=== PATIENT | male | born 1975 | race Caucasian/White ===

== ENCOUNTER 2023-01-24 09:40 | Emergency (ER) | payer OTHER, SELFPAY ==
--- NOTE | ~2023-01-24 | XR_ITS ---
EXAMINATION: XR WRIST, LEFT XR HAND, LEFT CLINICAL INFORMATION: Injury. Pain and swelling. COMPARISON: None available. TECHNIQUE: 4 views of the left hand and wrist FINDINGS: Bone alignment is normal. No acute fracture or dislocation. There is a bony protuberance off the radial side of the first metacarpal head and subcortical cystic or degenerative change. There is adjacent soft tissue swelling. Carpal bones are normal. XR/XR hand wrist LT IMPRESSION: Bony protuberance off the radial side of the first metacarpal head, subcortical cystic or degenerative degenerative changes and adjacent soft tissue swelling.
[2023-01-24 10:30] VITALS: BP 128/76; PULSE 86; RESP 19; TEMP 35.9; O2SAT 95; BMI 29.0
[2023-01-24 11:51] VITALS: BP 136/79; PULSE 84; RESP 16; TEMP 36.4; O2SAT 94
--- NOTE | 2023-01-24 11:52 | PC.NURSE ---
patient a&ox3, c/o rt wrist/hand pain 8/10 with movement and 3-4/10 when not moving, xr previously performed while pt was in wr, pt awaiting provider, call mclean within reach, will continue to monitor.
--- NOTE | 2023-01-24 13:11 | ED_ITS ---
HPI - General Adult General Chief complaint: Extremity Problem Stated complaint: ? L hand fracture Time Seen by Provider: 01/24/23 12:06 Source: patient Mode of arrival: ambulatory Limitations: no limitations History of Present Illness HPI narrative: Patient is a 47-year-old male presenting to the emergency department with worsening left thumb pain. Patient states he injured left hand around 25 years prior and had surgery, has had baseline deformity since that time. Reports he typically does not have pain to his left thumb. States over the past 6 months since he has had increasing pain to his left thumb radiating to his wrist as well as stiffness in the joints of his left thumb. States he has an appointment with [facility] within the next month. Denies any numbness or tingling to his thumb denies any color change. States this morning the pain was so severe he felt he needed to be evaluated in the emergency department to rule out fracture. He denies any recent injury or trauma. MD complaint: Left thumb pain Onset (ago): month(s) Location: upper extremity Radiation: proximal Severity: severe Quality: aching Pain Consistency: constant Relieving factors: rest Exacerbating factors: movement Associated symptoms: denies other symptoms Treatments prior to arrival: none Related Data Previous Rx's Medication Instructions Recorded prednisone 20 mg tablet 40 mg PO DAILY #10 tabs 01/24/23 Allergies Allergy/AdvReac Type Severity Reaction Status Date / Time tree and shrub pollen Allergy Unknown Verified 01/24/23 11:51 Review of Systems Review of Systems: As per HPI. Yes all other systems are reviewed and are negative Constitutional: Constitutional: Reports as per HPI FORMERLY [facility], [facility] Social History Social History Advance Directives: No Physical Exam ED Vital Signs: Vital Signs - 24 hr 01/24/23 10:30 01/24/23 11:51 Temperature 96.7 F L 97.5 F Pulse Rate 86 84 Respiratory Rate 19 16 Blood Pressure 128/76 136/79 Pulse Oximetry 95 94 Oxygen Delivery Method Room Air Room Air BMI result Body Mass Index 29.0 Vital signs have been reviewed and appear to be correct. Blood pressure normal. Heart rate normal. Respiratory rate normal. Temperature normal. Oxygen saturation normal. Const General: cooperative, healthy appearing and no acute distress Orientation/consciousness: oriented to person, oriented to place, oriented to time and patient oriented x3 Limitations: no limitations HENMT Head: Yes normocephalic and Yes atraumatic Ears: external ears normal General nose exam: Normal external nose present Face and sinus: Yes face symmetric Mouth: oropharynx normal and moist mucous membranes Throat: Yes uvula midline Eyes Pupils: Equal, round and reactive pupils present Neck Neck: Yes normal visual inspection and Yes supple Resp Effort & Inspection: normal respiratory effort and able to speak in complete sentences Auscultation: clear to auscultation bilaterally Cardio Rate: regular rate Rhythm: regular rhythm Heart sounds: S1 normal heart sound present and S2 normal heart sound present GI Palpation (GI): Soft to palpation and nontender Auscultation: normoactive bowel sounds General: Yes no CVA tenderness Back/Spine/Pelvis Back: no CVA tenderness Skin General skin exam: elasticity normal and turgor normal Neuro General: oriented to person, oriented to place, oriented to time, patient oriented x3, moves all extremities, no focal motor deficits and CN's II-XI intact bilaterally Cranial nerves: Yes Equal, round and reactive pupils present Cognition (Neuro): normal cognition Extrem General: Yes full ROM, Yes no pedal edema and Yes no calf tenderness Left upper extremity: hand Details: abnormal to inspection Details: a deformity Location: of the thumb, normal capillary refill, neuromotor exam normal, neur osensory exam normal, tendon exam normal, tenderness Location: of the thumb Location: at the MCP joint and normal ROM of fingers Psych Mental Status: mental status grossly normal Affect: normal affect Thought process: Normal thought process present Medical Decision Making Medical Decision Making MDM Narrative: Patient is a 47-year-old male presenting to the emergency department with worsening left thumb pain. On exam patient is awake, A+Ox3, VS WNL, afebrile, normal neurological exam without focal deficits, left thumb deformity which patient states is baseline for past 25 years, tenderness over 1st MCP joint, no erythema or swelling, no ecchymosis, full passive ROM, limited ROM with flexion and extension,normal cap refill. Given reported symptoms and physical exam findings, initial differential includes sprain, fracture, arthritis. Unlikely gout as no erythema or warmth. X-ray notable for bony protuberance on radial side of first metacarpal with degenerative changes and associated soft tissue swelling. My interpretation is in agreement with the radiologist's interpretation. Will discharge patient home on short course prednisone to decrease inflammation. Advised patient he can utilize Tylenol on the prednisone, then can add ibuprofen once prednisone has been completed. Should also ice the area for 10-15 minutes at a time several times daily and perform gentle [id number] exercises several times daily. Instructed patient to keep follow-up appointment with Orthopedics. Return precautions discussed at bedside. Instructed patient to also follow up with primary care provider. All results discussed and all questions answered. Patient verbalized understanding of an agreement with plan. Differential Diagnosis Differential Diagnoses: The differential diagnosis associated with the presentation includes As per MDM. Independent Interpretation I performed an independent interpretation of an: Plain X-Ray Interpretation: Bony protuberance of radial side of 1st metacarpal with degenerative changes and adjacent soft tissue swelling, no acute fracture Radiology Impression Discussion of test interpretation with radiology: I have reviewed the rad iologist's reading. Radiologist Impression: XR/XR hand wrist LT IMPRESSION: Bony protuberance off the radial side of the first metacarpal head, subcortical cystic or degenerative degenerative changes and adjacent soft tissue swelling. 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 Your evaluation did not find evidence of medical conditions requiring emergent intervention at this time. Please rest, ice, and elevate your hand while at rest, and resume normal activities as tolerated. You are being prescribed a sh ort course of prednisone, you may take Tylenol while you are on the prednisone but you should not take ibuprofen or other NSAIDs. You can resume the use of NSAIDs after you have completed the course of prednisone. We recommend after the prednisone you take 600mg ibuprofen every 6 hours or 650mg Tylenol every 6 hours as needed for pain. If needed you can alternate these medications as they take 1 medication every 3 hours. For instance at noon take ibuprofen, then at 3:00 p.m. take Tylenol, then at 6:00 p.m. take ibuprofen. Please schedule an appointment for follow-up with your primary care provider this week. Keep your orthopedic appointment through [facility]. Return to the emergency department if you experience worsening pain, numbness, tingling, change of color in your hand, or any other concerning symptoms. Prescriptions: New prednisone 20 mg tablet 40 mg PO DAILY Qty: 10 0RF
== END 2023-01-24 14:15 | disposition home or self-care (01) ==
PROVIDERS: Emergency Provider Emergency Medicine; PCP Family Medicine
DX: M19.042 Primary osteoarthritis, left hand (principal); M79.645 Pain in left finger(s)
CPT/HCPCS: 73110; 73130; 99283; 99284

== ENCOUNTER 2024-03-19 00:16 | Emergency (ER) | payer OTHER, SELFPAY ==
[2024-03-19 00:44] VITALS: BP 126/83; PULSE 98; RESP 18; TEMP 36.6; O2SAT 96; BMI 28.6
--- NOTE | 2024-03-19 01:44 | PC.NURSE ---
pt from home, a&ox4, respirations even and unlabored. pt reporting at around 11pm his older cat started fighting the younger cat so he attempted to break them up when his cat bit and scratched him. pt noted to have multiple tooth punctures and scratches on bilateral hands and arms. pt is unsure when his cat went to the vet last but has been previously got a rabies vaccine and reports the cat is a home cat. pt denies pain. swelling noted to left thumb.
[2024-03-19 03:43] VITALS: BP 143/92; PULSE 86; RESP 18; TEMP 36.4; O2SAT 97
--- NOTE | 2024-03-19 04:02 | MHC.EDTECH ---
Hourly rounds and vitals completed,patient was given a cup of coffee,and a cup of ice water,call mclean in reach
--- NOTE | 2024-03-19 04:11 | PC.NURSE ---
charge out clerk Karen at bedside speaking with pt about plan of care, aware of pt 02/13 pain.
--- NOTE | 2024-03-19 04:26 | ED.ANIMALBIT ---
HPI - Animal Bite General Chief Complaint: Animal Bite Stated Complaint: animal bite Time Seen by Provider: 03/19/24 04:12 Source: patient Mode of arrival: ambulatory Limitations: no limitations History of Present Illness ED Provider: Dr. Deanna Ramirez HPI narrative: Patient comes to the emergency room complaining of cat bites and scratches to both hands. Patient states that the cat who attack them is his own cat. Patient states he has 3 cats at home, the CT scan into a fight. Patient got bitten by 1 of his cats. Patient states that the cats have been immunized for rabies but they do not know if they are up to date. However, the 3 cats are indoor only cats and they have no exposure to other animals. Patient states that he does not remember when his last Tdap injection/booster was Related Data Previous Rx's ?Medication ?Instructions ?Recorded prednisone 20 mg tablet 40 mg (2 x 20 mg) PO DAILY #10 tabs 01/24/23 acetaminophen 500 mg tablet 500 mg PO QID PRN fever or pain 03/19/24 #20 tabs amoxicillin 500 mg-potassium 1 tab PO BID #14 tabs 03/19/24 clavulanate 125 mg tablet (Augmentin) ketorolac 10 mg tablet 10 mg PO .B.i.d. PRN pain #10 tabs 03/19/24 Allergies Allergy/AdvReac Type Severity Reaction Status Date / Time tree and shrub pollen Allergy Unknown Verified 03/19/24 00:44 Review of Systems Review of Systems: Constitutional : No Weight loss, No Fever, No Chills, No Night Sweats, No Fatigue, No Malaise ENT/Mouth : No Hearing loss, No Ear Pain, No Nasal Congestion, No Sinus Pain, No Hoarseness, No sore throat, No Rhinorrhea, No Swallowing Difficulty Eyes: No Eye Pain, No Swelling, No Redness, No Foreign Body, No Discharge, No Vision Changes Cardiovascular : No Chest Pain, No SOB, No Dyspnea on Exertion, No Orthopnea, No Edema, No Palpitations Respiratory : No Cough, No Sputum, No Wheezing, No Smoke Exposure, No Dyspnea Gastrointestinal : No Nausea, No Vomiting, No Diarrhea, No Constipation, No abdominal Pain, No Hematochezia, No Melena Genitourinary : no irregular bleeding, No Dysuria, No Urinary Frequency, No Hematuria, No Urinary Incontinence, No Urgency, No Flank Pain, No Urinary Flow Changes, No Hesitancy Musculoskeletal : No joint pain, No Myalgias, No Joint Swelling Skin : Multiple scratches and cat bites to both hands Neuro : No Weakness, No Numbness, No Paresthesias, No Loss of Consciousness, No Dizziness, No Headache Psych : No Anxiety/Panic, No Depression, No SI/HI/AH/VH, No Social Issues, Heme/Lymph: No Bruising, No Bleeding,No Lymphadenopathy Endocrine : No Polyuria, No Polydipsia, No Temperature Intolerance PMFSH Social History Social History Smoked in Last 30 Days: No Use of substances other than those prescribed or required for medical reasons: No Advance Directives: No Advance Directives Information Provided: No Do you have a plan to hurt others: No Plan Physical Exam ED Vital Signs: Vital Signs - 24 hr 03/19/24 00:44 03/19/24 03:43 Temperature 97.8 F 97.6 F Pulse Rate 98 86 Respiratory Rate 18 18 Blood Pressure 126/83 143/92 H Pulse Oximetry 96 97 Oxygen Delivery Method Room Air Room Air BMI result Body Mass Index 28.6 Const Other: Appearance: Alert. Oriented X3. No acute distress. Eyes: Pupils equal, round and reactive to light. ENT: Pharynx normal. Neck: Normal inspection. Neck supple. No lymph nodes noted. No crepitus CVS: Normal heart rate and rhythm. Pulses normal. Normal S1 and S2 Respiratory: No respiratory distress. Breath sounds normal. No Wheezing. No rales Abdomen: Soft and nontender. No rigidity. No distention. Skin: Skin warm and dry. Normal skin color. Normal skin turgor. Extremities: No lower extremity edema. No Lacerations. No Rash. Patient is able to flex and extend all fingers. Flexing the index finger of the left hand hurts but still able to do so. A bit swollen, no erythema, no pus drainage Neuro: Oriented X 3. No motor deficit. No sensory deficit. Moving all extremities. No slurred speech. CN 2 through 12 grossly intact Psych: calm, cooperative, normal affect Medical Decision Making Medical Decision Making MDM Narrative: Patient's hands were soaked in Betadine. Patient received IM ketorolac, Tdap, and given p.o. Augmentin. -patient is adamant that his cats have been behaving normal and occasionally get into CT fights. His kids are indoor only and they have not had any exposure to any animals at may have rabies. Differential Diagnosis Differential Diagnoses: The differential diagnosis associated with the presentation includes (Cat bite, puncture wound) Discharge Plan Discharge Clinical Impression: Cat bite Patient Disposition: Home, Self-Care Instructions: Animal Bite (ED) Additional Instructions: Please follow-up with your primary care physician tomorrow. If you have any worsening or new symptoms, please return to the emergency room or call 911 Prescriptions: New amoxicillin-pot clavulanate [Augmentin] 500-125 mg tablet 1 tab PO BID Qty: 14 0RF ketorolac 10 mg tablet 10 mg PO .B.i.d. PRN (Reason: pain) Qty: 10 0RF Rx Instructions: maximum total duration of 5 days from all oral, intranasal, or parenteral formulations acetaminophen 500 mg tablet 500 mg PO QID PRN (Reason: fever or pain) Qty: 20 0RF No Action prednisone 20 mg tablet 40 mg PO DAILY Qty: 10 0RF Stand Alone Forms: Work/School Release Print Language: Luxembourgish
[2024-03-19 04:54] VITALS: BP 143/96; PULSE 83; RESP 18; TEMP 36.7; O2SAT 98
[2024-03-19] MEDS: Ketorolac Tromethamine 60 MG/2 ML VIAL IM (04:54)
[2024-03-19] MEDS: Amoxicillin/Potassium Clav 875 MG TABLET PO (04:54)
[2024-03-19] MEDS: Diphth,Pertus(ACell),Tet Adult 0.5 ML SYRINGE IM (04:54)
[2024-03-19 05:02] VITALS: BP 143/96; PULSE 83; RESP 18; TEMP 36.7; O2SAT 98
== END 2024-03-19 05:02 | disposition home or self-care (01) ==
PROVIDERS: Emergency Provider Emergency Medicine; PCP Family Medicine
DX: S61.451A Open bite of right hand, initial encounter (principal); W55.01XA Bitten by cat, initial encounter; Y93.89 Activity, other specified; Y92.019 Unspecified place in single-family (private) house as the place of occurrence of the external cause; Y99.9 Unspecified external cause status; Z23 Encounter for immunization
CPT/HCPCS: 90471; 90715; 96372; 99284; J1885